=== PATIENT | female | born 1985 | race Caucasian/White ===

== ENCOUNTER 2018-08-30 14:12 | Emergency (ER) | payer OTHER, SELFPAY ==
[2018-08-30 14:21] VITALS: BP 148/101; PULSE 85; RESP 18; TEMP 37; O2SAT 98; BMI 36.7
[2018-08-30 14:47] VITALS: BP 125/75; PULSE 81; RESP 16; O2SAT 98
--- NOTE | 2018-08-30 14:47 | PC.NURSE ---
reports fullness in ear since yesterday, took allergy medications and today room spinning sensation has reduced but is still present.
[2018-08-30 15:00] VITALS: BP 140/88; PULSE 79; RESP 14; O2SAT 96
--- NOTE | 2018-08-30 15:06 | ED_ITS ---
HPI - Dizziness <AVA Covington - Last Filed: 08/30/18 22:15> General Chief Complaint: Dizziness Stated Complaint: EXTREME DIZZINESS Time Seen by Provider: 08/30/18 14:43 Source: patient Mode of arrival: ambulatory Limitations: no limitations History of Present Illness HPI Narrative: 33-year-old female with a history of migraines, presents emergency department today complaining of dizziness after waking up that started yesterday morning. She states she feels like the room is spinning, this is made worse by moving her head or changing positions. Associated right ear pain for the past 2 days. Patient states that she has had respiratory allergies for the past for which she has recently been taking medication for, however she has stopped her allergy medication over the past few days. Patient denies syncope, vomiting, fevers, neck pain, headaches at this time, chest pain, shortness of breath, weakness, numbness, vision changes, decreased strength in any limbs, or a change in bowel or bladder problems. Related Data Home Medications Medication Instructions Recorded Confirmed [id number] 1 tab PO PRN PRN 08/30/18 08/30/18 [Excedrin Migraine] levocetirizine [Xyzal] 1 tab PO DAILY 08/30/18 08/30/18 Previous Rx's Medication Instructions Recorded fluticasone propionate 2 spray NASAL BID 14 Days #9.9 gram 08/30/18 meclizine 25 mg PO BID PRN #7 tab 08/30/18 Allergies Allergy/AdvReac Type Severity Reaction Status Date / Time Penicillins Allergy Intermediate Hives Verified 08/30/18 14:35 Review of Systems <AVA C[place] - Last Filed: 08/30/18 22:15> Review of Systems REVIEW OF SYSTEMS: GENERAL: Denies fever or chills. HENT: Patient complains of right ear pain, see HPI. EYES: No loss of vision, double vision, eye pain, or irritation. CARDIOVASCULAR: No chest pain or syncope. RESPIRATORY: No shortness of breath or cough. GASTROINTESTINAL: No nausea, vomiting, diarrhea, or constipation. GENITOURINARY: No flank pain or dysuria. MUSCULOSKELETAL: No pain, weakness, or deformities. INTEGUMENTARY: No rash, lesions, or pruritus. NEURO: No numbness, tingling, memory loss, or confusion. Patient complains of vertigo, see HPI. PSYCH: No behavior or mood changes. PFSH <AVA C[place] - Last Filed: 08/30/18 22:15> Medical History Seasonal allergies (Acute) Social History Smoking Status: Never smoker Social History Smoking Status: Never smoker Exam <AVA [place] - Last Filed: 08/30/18 22:15> Initial Vital Signs Initial Vital Signs: Vital Signs Temperature 98.6 F 08/30/18 14:21 Pulse Rate 85 08/30/18 14:21 Respiratory Rate 18 08/30/18 14:21 Blood Pressure 148/101 H 08/30/18 14:21 Pulse Oximetry 98 08/30/18 14:21 PHYSICAL EXAMINATION: GENERAL: Well groomed, alert, and cooperative. Answers questions promptly and appropriately. Vital signs noted. HENT: Normocephalic, atraumatic. Ear canals patent. Bilateral ear ear effusions noted, TMs intact without purulence discharge. Oral mucosa is pink and moist. EYES: PERRLA, EOMIs, conjunctiva pink, sclera white, no periorbital swelling. NECK: Full range of motion. CHEST: Normal to inspection and without deformities. CARDIOVASCULAR: S1 and S2 sounds normal. Regular rate and rhythm, no murmurs, clicks, or bruits. No pedal edema. RESPIRATORY: Normal respiratory rate, trachea midline, airway patent. No stridor, nasal flaring or accessory muscle use. Lungs are clear in all sal without wheeze, rhonchi, or crackles. GASTROINTESTINAL: Bowel sounds normoactive. Abdomen is soft and non-tender. No organomegaly. MUSCULOSKELETAL: Normal gait and coordination. Equal tone and mass bilaterally. No spinal tenderness or deformities. EXTREMITIES: CMS intact. Moves all extremities. SKIN: Warm, dry, soft, appropriate color for ethnicity. No lesions, rashes, or wounds. NEURO: Alert and Oriented X 3. Good coordination. CN II-XIII intact. No ataxia, or sensory deficits, or cognitive issues. Vicky-Hallpike maneuver elected right horizontal nystagmus while turning her head to the right knee and not the left. Patient reported increased dizziness when she sat up after maneuver as well. PSYCH: Appropriate affect and mood. <Jazmyn Turcios DO - Last Filed: 09/01/18 07:58> Initial Vital Signs Initial Vital Signs: Vital Signs Temperature 98.6 F 08/30/18 14:21 Pulse Rate 85 08/30/18 14:21 Respiratory Rate 18 08/30/18 14:21 Blood Pressure 148/101 H 08/30/18 14:21 Pulse Oximetry 98 08/30/18 14:21 Course <AVA [place] - Last Filed: 08/30/18 22:15> Orders Ordered: Discontinued Medications Meclizine HCl (Antivert) 50 mg PO NOW ONE Stop: 08/30/18 14:55 Last Admin: 08/30/18 15:12 Dose: 50 mg Reevaluation(s) Reevaluation #1: Patient states she is feeling much better after administration of meclizine. Consultations Consultation #1: Patient staffed with Dr. Turcios Vital Signs - 8 hr 08/30/18 14:21 08/30/18 14:47 08/30/18 15:00 Temperature 98.6 F Pulse Rate 85 81 79 Respiratory Rate 18 16 14 Blood Pressure 148/101 H Blood Pressure [Left Arm] 125/75 140/88 Pulse Oximetry 98 98 96 08/30/18 16:07 Temperature Pulse Rate 82 Respiratory Rate 18 Blood Pressure 136/87 Blood Pressure [Left Arm] Pulse Oximetry 94 <Jazmyn Turcios DO - Last Filed: 09/01/18 07:58> Orders Ordered: Discontinued Medications Meclizine HCl (Antivert) 50 mg PO NOW ONE Stop: 08/30/18 14:55 Last Admin: 08/30/18 15:12 Dose: 50 mg Vital Signs - 8 hr 08/30/18 14:21 08/30/18 14:47 08/30/18 15:00 Temperature 98.6 F Pulse Rate 85 81 79 Respiratory Rate 18 16 14 Blood Pressure 148/101 H Blood Pressure [Left Arm] 125/75 140/88 Pulse Oximetry 98 98 96 08/30/18 16:07 Temperature Pulse Rate 82 Respiratory Rate 18 Blood Pressure 136/87 Blood Pressure [Left Arm] Pulse Oximetry 94 MDM - Dizziness <AAV [place] - Last Filed: 08/30/18 22:15> Medical Records Attestation: I reviewed the patient's medical records. Lab Data Attestation: I reviewed the patient's lab results. Point of Care Testing Test Results Negative Urine Dip Bedside Urine Glucose Negative Bedside Urine Bilirubin - Negative Bedside Urine Ketone - Negative Urine Specific [place] 1.020 Bedside Urine Occult Blood - Negative Bedside Urine pH 7.0 Bedside Urine Protein - Negative Bedside Urine Urobilinogen - Negative Bedside Urine Nitrite - Negative Bedside Urine Leukocytes - Negative Esterase ECG Data Interpretation: Sinus rhythm, rate 92, CO interval 138, QTC 396, no ST elevation or ST depression, no T-wave inversion, no ectopy. EKG also reviewed by Dr. Turcios. MDM Narrative Medical decision making narrative: Suspect patient's symptoms are caused by a labyrinthitis/ peripheral vertigo due to positive Vicky-Hallpike maneuver, reasons of rate ear effusion with pain, worsening symptoms with position change, resolution of symptoms with meclizine, sudden onset of symptoms, and description that the room is spinning. Low suspicion for central vertigo due to exam, however patient is encouraged to follow up for worsening symptoms or continued symptoms. <Jazmyn Turcios, - Last Filed: 09/01/18 07:58> Lab Data Point of Care Testing Test Results Negative Urine Dip Bedside Urine Glucose Negative Bedside Urine Bilirubin - Negative Bedside Urine Ketone - Negative Urine Specific [place] 1.020 Bedside Urine Occult Blood - Negative Bedside Urine pH 7.0 Bedside Urine Protein - Negative Bedside Urine Urobilinogen - Negative Bedside Urine Nitrite - Negative Bedside Urine Leukocytes - Negative Esterase Discharge Plan Departure Patient Disposition: Home Clinical Impression: Acute effusion of right ear, Vertigo Discharge Date/Time: 08/30/18 16:07 Interventions: ED Discharge Assessment Last Done: 08/30/18 16:07 Instructions: Allergic Rhinitis, DI for Vertigo Activity Restrictions/Additional Instructions: Thank you for entrusting me with your care today. As discussed, her symptoms are most likely caused by vertigo which may due to you're right ear effusion. An effusion is water behind her ear, this is most likely from discontinuing your allergy medication due to the swelling that occurs when you have allergies, this is not an infection. I prescribed you meclizine for the dizziness as well as a nasal spray to decrease the inflammation in her nose hopefully drinking the water behind your eardrum. Please follow up with her primary care provider in the next week. Return to the emergency department if you have worsening dizziness, numbness or tingling, facial droop, limb weakness, syncope, swelling of your words, chest pain, shortness of breath. Prescriptions: New fluticasone propionate 50 mcg/actuation spray,suspension 2 spray NASAL BID 14 Days Qty: 9.9 RF: 0 meclizine 25 mg tablet 25 mg PO BID PRN (Reason: dizziness) Qty: 7 RF: 0 No Action Excedrin Migraine 250-250-65 mg Tablet 1 tab PO PRN PRN (Reason: headache or pain) RF: 0 levocetirizine [Xyzal] 5 mg Tablet 1 tab PO DAILY RF: 0 <Jazmyn Turcios DO - Last Filed: 09/01/18 07:58> Cosign ED Attending Cosignature Attestation: I was immediately available in the department for consultation, case discussed with myself. Found to have right ear effusion and likely the source of her vertigo symptoms, no neurologic changes concerning for central causes. This documentation has been reviewed and I agree with assessment and plan. Supervised by Jazmyn Turcios DO
[2018-08-30] MEDS: MECLIZINE HCL 12.5 MG TABLET 50 MG PO (15:12)
[2018-08-30 16:07] VITALS: BP 136/87; PULSE 82; RESP 18; O2SAT 94
== END 2018-08-30 16:07 | disposition home or self-care (01) ==
PROVIDERS: Emergency Provider Nurse Practitioner
DX: H65.191 Other acute nonsuppurative otitis media, right ear (principal); R42 Dizziness and giddiness
CPT/HCPCS: 81003; 81025; 93005; 99282; 99283